=== PATIENT | female | born 1960 | race Caucasian/White ===

== ENCOUNTER 2019-07-24 13:30 | Day surgery (SDC) | payer OTHER ==
[~2019-07-24] VITALS: Ht 157.5 cm; Wt 126.8 kg
[2019-07-24] MEDS ORDERED: PROPOFOL 1% 20 ML VIAL IVP ONE (13:31)
[2019-07-24] MEDS ORDERED: SODIUM CHLORIDE 0.9% 1,000 ML IV ONE ×2 (13:46→14:00)
[2019-07-24] MEDS ORDERED: FERR134T2 PO (13:58)
[2019-07-24] MEDS ORDERED: LEVO150 PO (13:58)
[2019-07-24] MEDS ORDERED: VITA1TAB22 PO (13:58)
[2019-07-24] MEDS ORDERED: ATOR40TA28 PO (13:58)
[2019-07-24] MEDS ORDERED: VITA80008 PO (13:58)
[2019-07-24] MEDS ORDERED: LISI-662 PO (13:58)
[2019-07-24] MEDS ORDERED: CHOL50004 PO (13:58)
[2019-07-24] MEDS ORDERED: BISA-151 PO (13:58)
== END 2019-07-24 16:20 | disposition home or self-care (01) ==
LOC: SURGERY 13:30
PROVIDERS: ATTEND Student in an Organized Health Care Education/Training Program
DX: D50.9 Iron deficiency anemia, unspecified (principal); K31.89 Other diseases of stomach and duodenum; K29.50 Unspecified chronic gastritis without bleeding; B96.81 Helicobacter pylori [H. pylori] as the cause of diseases classified elsewhere; G47.33 Obstructive sleep apnea (adult) (pediatric); E03.9 Hypothyroidism, unspecified; E66.01 Morbid (severe) obesity due to excess calories; Z68.43 Body mass index [BMI] 50.0-59.9, adult; K21.9 Gastro-esophageal reflux disease without esophagitis; M19.90 Unspecified osteoarthritis, unspecified site; Z86.73 Personal history of transient ischemic attack (TIA), and cerebral infarction without residual deficits; Z90.49 Acquired absence of other specified parts of digestive tract; Z98.890 Other specified postprocedural states
CPT/HCPCS: 43239; 88305; 88312; 88313; 93005; C1769; J2704; J7030